=== PATIENT | female | born 1990 | race Caucasian/White ===

== ENCOUNTER 2019-03-14 10:43 | Emergency (ER) | payer MEDICAID, OTHER ==
[~2019-03-14] VITALS: Wt 45.0 kg
[~2019-03-14 10:43] MED LIST: PREN1TAB62 PO
[2019-03-14] MEDS ORDERED: AZITHROMYCIN 500 MG TAB PO ONE (11:30)
[2019-03-14] MEDS ORDERED: CEFTRIAXONE 250 MG INJ IM ONE (11:30)
[2019-03-14] MEDS ORDERED: metroNIDAZOLE 500 MG TAB PO ONE (11:30)
[2019-03-14] MEDS ORDERED: DOXY100T20 PO (11:41)
--- NOTE | 2019-03-14 11:41 | ERD ---
ER Documentation Chief Complaint Chief Complaint lower abd pain for 3 days. no distress. rash with no signs of sob. HPI This is a 28-year-old female with a previous history of substance abuse who presents to the emergency room for evaluation of STD exposure. The patient states that her partner was recently diagnosed with chlamydia and she is having some painful urination and has had chlamydia in the past and states that this feels similar. Her partner has been treated and patient came to the ER for evaluation. She denies any vaginal discharge, abdominal pain, nausea, vomiting, fevers or chills. ROS All systems reviewed and are negative except as per history of present illness. Medications Home Meds Discontinued Reported Medications Vit-Iron Fumarate-FA ( Vitamin Tablet) 1 Each Tablet, 1 TAB PO DAILY, TAB 11/16/15 Allergies Allergies: Coded Allergies: No Known Allergy (Unverified , 03/14/19) PMhx/Soc Medical and Surgical Hx: pt denies Surgical Hx History of Surgery: No Hx Neurological Disorder: No Hx Respiratory Disorders: No Hx Cardiac Disorders: Yes (HTN(not on meds)) Hx Psychiatric Problems: Yes (DEPRESSION) Hx Miscellaneous Medical Probl: No Hx Alcohol Use: No Hx Substance Use: No Hx Tobacco Use: No Smoking Status: Never smoker Physical Exam Vitals Vital Signs Date Temp Pulse Resp B/P (MAP) Pulse Ox O2 O2 Flow FiO2 Time Delivery Rate 03/14/19 98.2 98 18 150/51 98 10:50 (84) Physical Exam Const: No acute distress Head: Atraumatic Eyes: Normal Conjunctiva ENT: Normal External Ears, Nose and Mouth. Neck: Full range of motion. No meningismus. Resp: Clear to auscultation bilaterally Cardio: Regular rate and rhythm, no murmurs Abd: Soft, non tender, non distended. Normal bowel sounds Skin: No petechiae or rashes Back: No midline or flank tenderness Ext: No cyanosis, or edema Neur: Awake and alert Psych: Normal Mood and Affect Results 24 hrs Laboratory Tests Test 03/14/19 11:10 03/14/19 11:17 Urine Color YELLOW Urine Clarity CLOUDY Urine pH 5.0 Urine Specific [place] 1.031 Urine Ketones TRACE mg/dL Urine Nitrite NEGATIVE mg/dL Urine Bilirubin NEGATIVE mg/dL Urine Urobilinogen 1+ mg/dL Urine Leukocyte Esterase 3+ Fernandez/ul Urine Microscopic RBC 67 /HPF Urine Microscopic WBC 116 /HPF Urine Squamous Epithelial Cells MANY /HPF Urine Calcium Oxalate Crystals MANY /HPF Urine Mucus MANY /HPF Urine Hemoglobin NEGATIVE mg/dL Urine Glucose NEGATIVE mg/dL Urine Total Protein 1+ mg/dl POC Beta HCG, Qualitative NEGATIVE Current Medications Medications Dose Sig/Cesar Start Time Status Last (Trade) Ordered Route PRN Stop Time Admin Dose Reason Admin Ceftriaxone 250 mg ONCE ONCE 03/14/19 DC 03/14/19 Sodium IM 11:30 11:27 (Rocephin) 03/14/19 11:31 1,000 mg ONCE ONCE 03/14/19 DC 03/14/19 Azithromycin PO 11:30 11:27 (Zithromax) 03/14/19 11:31 2,000 mg ONCE ONCE 03/14/19 DC 03/14/19 Metronidazole PO 11:30 11:27 (Flagyl) 03/14/19 11:31 Procedures/MDM This 28-year-old female presents to the emergency room for evaluation of STD exposure. Her partner was diagnosed with chlamydia. On my exam the patient is afebrile, nontoxic-appearing, hemodynamically stable. Urinalysis does reveal white blood cells in the urine. Her hCG is negative. The patient was given Rocephin, azithromycin, Flagyl in the emergency room. She will be discharged home with a prescription for doxycycline instructed not to be sexually active until she is done with her course of medications. The patient does verbalize understanding and is afebrile at this time. She was advised she can return to the ER at any moment for reevaluation she verbalized understanding. Departure Diagnosis: Primary Impression: STD exposure Additional Impressions: Dysuria Amphetamine abuse Condition: MARYANNE Blancas DO March 14, 2019 11:41
[2019-03-14 11:53] VITALS: BP 133/96; PULSE 96; RESP 20
== END 2019-03-14 12:27 | disposition home or self-care (01) ==
LOC: E/R 10:43
DX: R30.0 Dysuria (principal); F15.10 Other stimulant abuse, uncomplicated; I10 Essential (primary) hypertension; Z20.2 Contact with and (suspected) exposure to infections with a predominantly sexual mode of transmission
CPT/HCPCS: 81001; 81025; 96372; J0696; Z7502; Z7610